=== PATIENT | male | born 1980 | race Caucasian/White ===

== ENCOUNTER 2018-01-22 02:40 | Emergency (ER) | payer SELFPAY ==
[2018-01-22] MEDS ORDERED: ALBUTEROL/IPRATROPIUM 1 VIAL SOL INH ONE (03:00)
[2018-01-22] MEDS ORDERED: ETOMIDATE 2 MG/ML SOL IV ONE ×2 (03:09→03:15)
[2018-01-22] MEDS ORDERED: ATROPINE 0.1 MG/ML SOL ONE (03:09)
[2018-01-22] MEDS ORDERED: LIDOCAINE HCL 2% (100 MG) CARP ONE (03:09)
[2018-01-22] MEDS ORDERED: ROCURONIUM BROMIDE 10 MG/ML SOL IV ONE ×2 (03:10→03:57)
[2018-01-22] MEDS ORDERED: ALBUTEROL/IPRATROPIUM 1 VIAL SOL ONE (03:10)
[2018-01-22] MEDS ORDERED: SUCCINYLCHOLINE CHLORIDE 20 MG/ML SOL IV ONE ×2 (03:10→03:38)
[2018-01-22 03:12] LABS: BASOPHILS % (AUTO) 1 % (0-3); EOSINOPHILS % (AUTO) 2 % (0-9); HEMATOCRIT 42 % (39-53); HEMOGLOBIN 14.8 gm/dl (13.5-17.7); LYMPHOCYTES % (AUTO) 24.3 % (10-50); MEAN CORPUSCULAR HEMOGLOBIN 33.3 pg (27.0-32.0); MEAN CORPUSCULAR VOLUME 95 fL (80-100); MONOCYTES % (AUTO) 6.2 % (0-12); NEUTROPHILS % (AUTO) 66.1 % (37-80)
[2018-01-22 03:19] LABS: ALBUMIN 3.4 gm/dl (3.4-5.0); BILIRUBIN,TOTAL 0.3 mg/dl (0.2-1.0); CALCIUM 9.1 mg/dl (8.5-10.1); CARBON DIOXIDE 27.7 mEq/L (21-32); CREATININE 0.87 mg/dl (0.80-1.30); POTASSIUM 3.5 mMol/L (3.5-5.1); TOTAL PROTEIN 7.1 gm/dl (6.4-8.2)
[2018-01-22] MEDS ORDERED: MIDAZOLAM 2 MG/2 ML SOL ONE ×2 (03:19→03:20)
[2018-01-22] MEDS ORDERED: KETAMINE HYDROCHLORIDE 50 MG/ML SOL ONE ×2 (03:19→03:52)
[2018-01-22 03:20] LABS: ALCOHOL 0.192 gm/dl (0.000-0.08)
[2018-01-22] MEDS ORDERED: SODIUM CHLORIDE 0.9% 1000ML 1,000 ML IV ONE (03:20)
[2018-01-22] MEDS ORDERED: NALOXONE HYDROCHLORIDE 0.4 MG/ML SOL ONE (03:27)
[2018-01-22] MEDS ORDERED: NALOXONE HYDROCHLORIDE 0.4 MG/ML SOL IV ONE (03:29)
[2018-01-22 03:31] LABS: APPEARANCE,URINE Clear; BILIRUBIN,URINE NEGATIVE (NEGATIVE); COLOR,URINE Light yellow; GLUCOSE, URINE (UA) NEGATIVE (NEGATIVE); KETONES,URINE NEGATIVE (NEGATIVE); LEUKOCYTE ESTERASE ,URINE NEGATIVE (NEGATIVE); NITRATE,URINE NEGATIVE (NEGATIVE); OCCULT BLOOD,URINE NEGATIVE (NEG-TRACE); PH,URINE 5.5; UROBILINOGEN,URINE 0.2 (0.2-1.0 EU)
[2018-01-22] MEDS: KETAMINE HYDROCHLORIDE 50 MG/ML SOL IV PRN ×3 (03:36→03:48)
[2018-01-22 03:37] LABS: BACTERIA 1+ (< 1+); CRYSTALS NEGATIVE (0-3 AVE/HPF); RBC,URINE 0-2 (0-3AV/HPF)
[2018-01-22 03:38] LABS: AMPHETAMINES NEGATIVE (NEGATIVE); BARBITUATES NEGATIVE (NEGATIVE); BENZODIAZEPINES NEGATIVE (NEGATIVE); CANNABINOL(THC) NEGATIVE (NEGATIVE); COCAINE(COC) NEGATIVE (NEGATIVE); METHADONE NEGATIVE (NEGATIVE); METHAMPHETAMINES NEGATIVE (NEGATIVE); OPIATES(OP13) NEGATIVE (NEGATIVE); OXYCODONE(OXY) NEGATIVE (NEGATIVE); PROPOXYPHENE(PPX) NEGATIVE (NEGATIVE); TRICYCLIC ANTIDEPRESSANTS NEGATIVE (NEGATIVE)
[2018-01-22] MEDS ORDERED: MIDAZOLAM 2 MG/2 ML SOL IV ONE (03:43)
[2018-01-22] MEDS ORDERED: HYDROMORPHONE HCL 2 MG/ML SOL IV ONE (03:50)
[2018-01-22] MEDS ORDERED: SODIUM CHLORIDE 0.9% IV NR (03:55)
[2018-01-22] MEDS ORDERED: KETAMINE HCL IV NR (03:55)
[2018-01-22] MEDS ORDERED: SODIUM CHLORIDE 0.9% IV SCH (03:55)
[2018-01-22] MEDS ORDERED: KETAMINE HCL IV SCH (03:55)
[2018-01-22 04:50] VITALS: TEMP 98.2
[2018-01-22 05:05] VITALS: O2SAT 100
[2018-01-22 05:08] VITALS: BP 180/110; PULSE 90; RESP 16
== END 2018-01-22 04:40 | disposition short-term general hospital (02) | DRG 204 ==
LOC: ED 02:40
DX: R06.81 Apnea, not elsewhere classified (principal); R07.1 Chest pain on breathing; Y90.6 Blood alcohol level of 120-199 mg/100 ml; Z72.89 Other problems related to lifestyle
CPT/HCPCS: 31500; 71045; 80053; 80305; 80307; 81001; 84484; 85025; 93005; 96365; 96374; 96375; 99291; 99292; J0330; J0461; J2001; J2250; J2310; A9270-GY; J3490